=== PATIENT | male | born 1960 | race Caucasian/White ===

== ENCOUNTER 2017-10-08 04:12 | Emergency (ER) | payer BC, OTHER ==
[~2017-10-08] VITALS: Ht 182.9 cm; Wt 125.0 kg
[~2017-10-08 04:12] MED LIST: ACET-1138 PO; ASPEC81 PO; CLB200 PO; LOSA50TA6 PO; RXC5 PO
[2017-10-08 04:19] VITALS: TEMP 36.9; Ht 182.9 cm; Wt 125.0 kg
[2017-10-08] MEDS ORDERED: MoRPHine SULFATE 10 MG/ML CARP/VIAL IM STA (04:34)
[2017-10-08] MEDS ORDERED: KETOROLAC TROMETHAMINE 60 MG/2 ML VIAL IM STA (04:34)
[2017-10-08] MEDS ORDERED: ACET-1256 PO (04:37)
[2017-10-08] MEDS ORDERED: GLC/500 PO (04:37)
[2017-10-08] MEDS ORDERED: DEXAMETHASONE **PF** INJ 10 MG/ML VIAL IM ONE (04:45)
[2017-10-08] MEDS ORDERED: PRED50TA PO (05:39)
[2017-10-08] MEDS ORDERED: CYCL10TA6 PO (05:39)
[2017-10-08] MEDS ORDERED: OXYC1TAB3 PO (05:39)
[2017-10-08] MEDS ORDERED: OXYCODONE IR HOME PACK PO ONE (05:45)
[2017-10-08] MEDS ORDERED: FLEXERIL HOME PACK 10 MG VIAL PO ONE (05:45)
--- NOTE | 2017-10-08 05:47 | EMERGENCY ROOM VISIT NOTE ---
History First contact with patient: 04:23 Chief Complaint: NECK PAIN Stated Complaint: STIFF/PAIN NECK,PAIN IN LFT LEG, STIFF HIPS History of Present Illness The patient is a 57 year old male who presents to the Emergency Room with complaints of worsening pain in his right shoulder and right neck for the past one day. The patient has been having left hip pain as well for the last 2-3 days. The patient does have a history of bilateral hip replacement. He does not report injury or trauma. The patient states that he did start exercising 2 days ago, and believes that he took it easy. He has had worsening discomfort since then. The patient is without chest pain, chest tightness, shortness of breath, or abdominal pain. His discomfort worsens with range of motion of the shoulder. He does have tightness when looking around with his neck. He is able to ambulate despite his hip pain. He has not had fever or chills. He has not had relief of symptoms with ibuprofen at home. He rates the discomfort a 9/ 10. Review of Systems More than 10 systems were reviewed and otherwise negative with the exception of history of present illness. Past Medical/Surgical History Medical Problems: (1) Arthritis of left hip (2) Arthritis of right hip Family History No pertinent family history Social History Smoking Status: Former Smoker Current/Historical Medications Scheduled Cyclobenzaprine Hcl (Flexeril), 10 MG PO TID Losartan Potassium (Cozaar), 50 MG PO QAM Metformin Hcl (Glucophage), 1,000 MG PO BID Oxycodone Immediate Rel Tab (Roxicodone Ir), 1-2 TAB PO Q6 Prednisone (Prednisone), 50 MG PO DAILY Scheduled PRN Acetaminophen (Tylenol), 1,000 MG PO DIRECTED PRN for Pain or Fever Physical Exam Vital Signs Date Time Temp Pulse Resp B/P (MAP) Pulse Ox O2 Delivery O2 Flow Rate FiO2 10/08/17 04:19 36.9 106 22 156/106 99 Room Air Physical Exam VITALS: Vitals are noted on the nurse's note and reviewed by myself. Vital signs stable. GENERAL: Well-developed, well-nourished, white male who appears uncomfortable on examination. HEAD: Normocephalic atraumatic. EARS: External ear normal. External auditory canals clear, tympanic membranes pearly rodriguez without erythema or effusion bilaterally. EYES: Pupils equal round and reactive to light and accommodation. Conjunctivae without injection, sclerae without icterus. Extraocular movements intact. NOSE: Patent, turbinates without inflammation or discharge. MOUTH: Mucous membranes moist. Tonsils are not enlarged. Pharynx without erythema, blood, or exudate. Uvula midline. Airway patent. NECK: Supple without nuchal rigidity. No lymphadenopathy. No thyromegaly. Cervical spine is nontender. No meningeal this. HEART: Regular rate and rhythm without murmurs gallops or rubs. LUNGS: Clear to auscultation bilaterally without wheezes, rales or rhonchi. No retractions or accessory muscle use. MUSCULOSKELETAL: There is significant tenderness throughout a trapezius distribution along the right side neck, shoulder, and spine. This seems consistent with diffuse spasm and is not appreciated on the left side. The patient has range of motion of the right shoulder with discomfort. Neurovascular status is intact. There is no spinous process tenderness or step- off. No SI joint tenderness. The patient does have some very mild left hip tenderness on palpation laterally. He is able to ambulate. No saddle paresthesias. NEURO: Patient was alert and oriented to person place and time. CN II through XII grossly intact. Deep tendon reflexes 2+ throughout. Medical Decision & Procedures Medications Administered Medications (Trade) Dose Ordered Sig/Tino Route Start Time Stop Time Status Last Admin Dose Admin Morphine Sulfate (MoRPHine SULFATE INJ) 10 mg NOW STAT IM 10/08/17 04:34 10/08/17 04:35 DC 10/08/17 04:43 10 MG Ketorolac Tromethamine (Toradol Inj) 60 mg NOW STAT IM 10/08/17 04:34 10/08/17 04:35 DC 10/08/17 04:42 60 MG Dexamethasone Sodium Phosphate (Dexamethasone Inj Pf) 10 mg NOW ONCE IM 10/08/17 04:45 10/08/17 04:46 DC 10/08/17 04:41 10 MG ED Course Physical exam and history were performed. Nursing notes, EMR, and Medication List were personally reviewed. Patient appears to have a large right-sided trapezius spasm as well as left hip pain. I did elect to perform x-rays of the right shoulder and left hip. patient was given 10 mg IM morphine, 60 mg IM Toradol, and 10 mg IM Decadron. X-rays were reviewed by myself and my attending and are without significant acute process. There may be more left hip arthritis/inflammatory findings when compared to x-ray one year ago. This really does not appear to be in acute fracture. Official radiology read is pending. On reevaluation the patient felt much better after pain medication. I suspect his symptoms are musculoskeletal in etiology and should improve with conservative care. I will give him a course of oxycodone, Flexeril, and prednisone. He does have a history with followed with [facility], and he will be referred back to their service. The patient was otherwise invited back to the ER with any new, worsening, or concerning symptoms. The chart was completed utilizing [employer] Speech Voice Recognition Software. Grammatical errors, random word insertions, pronoun errors, and incomplete sentences are an occasional consequence of this system due to software limitations, ambient noise, and hardware issues. Any formal questions or concerns about the content, text, or information contained within the body of this dictation should be directly addressed to the provider for clarification. . Medical Decision Differential diagnosis includes, but is not limited to: Sprain, strain, fracture , dislocation, subluxation, contusion, spasm, arthritis, infection, abdominal process, and others Impression Primary Impression: Right shoulder pain Additional Impression: Left hip pain Departure Information Dispostion Home / Self-Care Condition GOOD Prescriptions Prednisone (Prednisone) 50 Mg Tab 50 MG PO DAILY for 4 Days, #4 TAB Prov: Chepe Thomas PA-C 10/08/17 Cyclobenzaprine Hcl (FLEXERIL) 10 Mg Tab 10 MG PO TID for 7 Days, #21 TAB Prov: Chepe Thomas PA-C 10/08/17 Oxycodone Immediate Rel Tab (ROXICODONE IR) 5 Mg Tab 1-2 TAB PO Q6 for Pain, #24 TAB Prov: Chepe Thomas PA-C 10/08/17 Referrals Sridhar Bennett M.D. Forms HOME CARE DOCUMENTATION FORM, IMPORTANT VISIT INFORMATION Patient Instructions My [facility] Additional Instructions You were seen and evaluated today on an emergency basis only. This is not a substitute for, or an effort to provide, complete comprehensive medical care. It is not possible to recognize and treat all injuries or illnesses in a single emergency department visit. For this reason it is recommended that you followup with [facility] for ongoing care and evaluation. For baseline pain relief you may alternate ibuprofen and acetaminophen every 4 hours for pain control. Take 600 mg ibuprofen (Advil) and then 4 hours later take 1000 mg acetaminophen (Tylenol). Do not take more than 3000 mg acetaminophen in a single day. Oxycodone (OxyIR) 5mg: Take ONE or TWO pills every SIX hours for breakthrough pain. Avoid alcohol, operating machinery or dangerous equipment, working on ladders or roofs, DRIVING, or situations where being under the influence may be dangerous. It is recommended to use an [id number] stool softener such as Colace, 100mg twice daily while taking this medication to avoid constipation. Flexeril 1 tablet up to 3 times a day as needed for muscle spasms. No driving, working, or alcohol use with Flexeril. Take prednisone daily for the next 4 days You are welcome to return to the emergency department anytime with new, worsening, or concerning symptoms. Problem Qualifiers
[2017-10-08 05:49] VITALS: BP 119/80; PULSE 105; O2SAT 95
--- NOTE | 2017-10-08 06:49 | DIAGNOSTIC IMAGING REPORT ---
L PELVIS/UNILATERAL HIP 2-3VIEWS HISTORY: 57 years-old Male Left hip pain acute left hip pain COMPARISON: Pelvis and left hip radiographs 10/24/2016 TECHNIQUE: AP view of the pelvis with 2 views of the left hip FINDINGS: Bilateral hip arthroplasties are noted. The right hardware appears intact and unremarkable. Bone fragments about the left hip hardware are noted measuring up to 3.4 cm which appear to demonstrate corticated margins. There is mild periarticular lucency noted along the medial and inferior margins of the left hip acetabular component component which also demonstrates a more acute angle compared to the right, unchanged. No acute fracture identified. Degenerative changes involve the lower lumbar spine. IMPRESSION: 1. Bilateral hip arthroplasties are noted without evidence of complication on the right. 2. Bone fragments measuring up to 3.4 cm are noted surrounding the left hip arthroplasty which appear to be well-corticated suggesting heterotopic ossifications without definite acute fracture identified. These are however new from comparison study 10/24/2016. 3. Lucency surrounding the medial and inferior margins of the left acetabular hardware is noted. Correlate clinically to exclude hardware loosening The above report was generated using voice recognition software. It may contain grammatical, syntax or spelling errors. Electronically signed by: Tu Mancia M.D. 10/08/2017 6:48 AM Dictated Date/Time: 10/08/2017 6:41 AM
--- NOTE | 2017-10-08 07:11 | DIAGNOSTIC IMAGING REPORT ---
R SHOULDER MIN 2 VIEWS ROUTINE CLINICAL HISTORY: Right shoulder pain and spasm. COMPARISON: None FINDINGS: Alignment of the right shoulder is anatomic. No fracture or suspicious osseous lesion is identified. There is moderate acromioclavicular joint osteoarthritis. IMPRESSION: 1. No acute fracture or dislocation of the right shoulder. 2. Moderate right acromioclavicular joint osteoarthritis. Electronically signed by: Tu Gil M.D. 10/08/2017 7:09 AM Dictated Date/Time: 10/08/2017 7:08 AM
== END 2017-10-08 05:53 | disposition home or self-care (01) ==
LOC: C.EDB 04:15
DX: M25.511 Pain in right shoulder (principal); M25.552 Pain in left hip; Z96.643 Presence of artificial hip joint, bilateral; M16.0 Bilateral primary osteoarthritis of hip; Z87.891 Personal history of nicotine dependence; Z79.84 Long term (current) use of oral hypoglycemic drugs